=== PATIENT | male | born 1975 | race American Indian/Alaskan Native ===

== ENCOUNTER 2025-08-18 08:30 | Emergency (ER) | payer MEDICAID, OTHER ==
[2025-08-18] MEDS ORDERED: Sodium Chloride 0.9% 10 ML Syringe FLUSH PRN (08:40)
[2025-08-18 08:56] LABS: PLATELET COUNT,PLT 189 10^3/uL (150-450); RED BLOOD CELL COUNT 4.37 10^6/uL (4.6-6.2); WHITE BLOOD CELL COUNT,WBC 17.2 10^3/uL (5.0-10.0)
[2025-08-18 08:57] LABS: BASOPHILS PERCENT AUTO 0.2 % (0.0-1.0); EOSINOPHILS PERCENT AUTO 2.0 % (1.0-3.0); LYMPHOCYTES PERCENT AUTO 3.6 % (20.5-50.1); MONOCYTES PERCENT AUTO 5.8 % (2-8); NEUTROPHILS PERCENT AUTO 88.4 % (42.2-75.2)
[2025-08-18 09:08] LABS: INR 1.8 (0.9-1.2)
[2025-08-18 09:19] LABS: BAND PERCENT MAN 3 %; EOSINOPHILS PERCENT MAN 2 % (1-3); LYMPHOCYTES PERCENT MAN 4 % (20-50); MONOCYTES PERCENT MAN 4 % (2-8); SEG NEUTROPHILS PERCENT MAN 87 % (42-75)
[2025-08-18 10:02] LABS: GLUCOSE RANDOM 115 mg/dL (70-99); PROTEIN TOTAL,TP 6.5 g/dL (6.4-8.2)
[2025-08-18 10:15] LABS: ALANINE AMINOTRANSFERASE,ALT 37 U/L (16-63); ASPARTATE AMNIOTRANSFERASE,AST 115 U/L (15-37)
[2025-08-18] MEDS: Lactated Ringers 2,000 ML IV ONE (10:16)
[2025-08-18 10:17] LABS: CHLORIDE,CL 88 mmol/L (98-107); POTASSIUM,K 2.9 mmol/L (3.5-5.1); SODIUM,NA 125 mmol/L (136-145)
[2025-08-18 10:18] LABS: CARBON DIOXIDE,CO2 19 mmol/L (21-32)
[2025-08-18 10:19] LABS: A/G RATIO 0.38; BILIRUBIN DIRECT 34.9 mg/dL (0.0-0.2); CREATININE 8.09 mg/dL (0.70-1.30); ESTIMATED GFR 7 mL/min (>=60)
[2025-08-18 10:20] LABS: BILIRUBIN TOTAL 44.7 mg/dL (0.2-1.0); BLOOD UREA NITROGEN,BUN 74 mg/dL (7-18)
[2025-08-18 10:40] LABS: BODY FLUID TYPE PERITONEAL FLUID
[2025-08-18] MEDS: Potassium Chloride 10 MEQ Tab.ER PO ONE (10:45)
[2025-08-18 11:08] LABS: GLUCOSE,BODY FLUID 126
[2025-08-18 11:09] LABS: PROTEIN,BODY FLUID < 2.0 mg/dL
[2025-08-18] MEDS: ALBUMIN HUMAN IV ONE (12:04)
[2025-08-18] MEDS: ALBUMIN HUMAN ONE (15:42)
[2025-08-18] MEDS: fentaNYL 100 MCG/2 ML SDV IVPUSH ONE (19:25)
[2025-08-18 20:22] VITALS: BP 111/68; PULSE 74
[2025-08-19 08:48] LABS: BASO'S 0 /cu mm; EO'S 0 /cu mm; LYMPH'S 13 /cu mm; MONO'S 21 /cu mm; OTHER 29 /cu mm; PMN'S 0 /cu mm
[2025-08-20 13:48] LABS: HAV AB IGM Negative (Negative); HBC IGM Negative (Negative); HEP B SURG AG Negative (Negative); HEP C AB BY CIA Negative (Negative); HEP C AB BY CIA INDEX 0.03 IV
== END 2025-08-18 20:10 | disposition still patient (30) ==
LOC: DL.ED 08:30
DX: K72.90 Hepatic failure, unspecified without coma (principal); N19 Unspecified kidney failure
CPT/HCPCS: 36415; 49083; 51702; 76700; 80053; 80074; 82042; 82140; 82150; 82248; 82945; 83690; 84157; 85025; 85610; 87070; 87205; 89051; 96361; 96365; 96366; 96375; 99285-25; A9270-GY; J0696; J3010; J7120; P9047

== ENCOUNTER 2025-09-18 10:27 | Emergency (ER) | payer MEDICAID, OTHER ==
[2025-09-18 11:22] LABS: BASOPHILS PERCENT AUTO 0.2 % (0.0-1.0); EOSINOPHILS PERCENT AUTO 1.7 % (1.0-3.0); LYMPHOCYTES PERCENT AUTO 7.9 % (20.5-50.1); MONOCYTES PERCENT AUTO 10.8 % (2-8); NEUTROPHILS PERCENT AUTO 79.4 % (42.2-75.2); PLATELET COUNT,PLT 98 10^3/uL (150-450); RED BLOOD CELL COUNT 2.59 10^6/uL (4.6-6.2); WHITE BLOOD CELL COUNT,WBC 10.9 10^3/uL (5.0-10.0)
[2025-09-18 11:37] LABS: INR 2.7 (0.9-1.2)
[2025-09-18 12:00] LABS: ALANINE AMINOTRANSFERASE,ALT 47.0 U/L (16-63); ASPARTATE AMNIOTRANSFERASE,AST 121.0 U/L (15-37); BLOOD UREA NITROGEN,BUN 23.0 mg/dL (7-18); CARBON DIOXIDE,CO2 32.0 mmol/L (21-32); CREATININE 7.04 mg/dL (0.70-1.30); EST CRCL DRUG DOSING (CG) 13.37 mL/min; GLUCOSE RANDOM 107.0 mg/dL (70-99); PROTEIN TOTAL,TP 6.1 g/dL (6.4-8.2)
[2025-09-18 12:03] LABS: A/G RATIO 0.33; BILIRUBIN TOTAL 29.2 mg/dL (0.2-1.0); CHLORIDE,CL 89.0 mmol/L (98-107); ESTIMATED GFR 9.0 mL/min (>=60); POTASSIUM,K 3.1 mmol/L (3.5-5.1); SODIUM,NA 131.0 mmol/L (136-145)
[2025-09-18] MEDS: Potassium Chloride 10 MEQ Tab.ER PO ONE (13:01)
[2025-09-18 14:54] VITALS: BP 101/61; PULSE 88
== END 2025-09-18 14:37 | disposition home or self-care (01) ==
LOC: DL.ED 10:27
DX: K70.31 Alcoholic cirrhosis of liver with ascites (principal); E87.6 Hypokalemia
CPT/HCPCS: 36415; 49082; 71045; 80053; 85025; 85610; 99285; A9270